=== PATIENT | male | born 1995 | race Two or more races ===

== ENCOUNTER → 2024-05-22 | Outpatient (BNVA) | payer MEDICAID, SELFPAY | END | disposition home or self-care (01) | PROVIDERS: PCP Physician Assistant; Referring Provider Physician Assistant; Visit Provider Urology | DX: N47.1 Phimosis (principal); N47.8 Other disorders of prepuce; E78.5 Hyperlipidemia, unspecified; F41.9 Anxiety disorder, unspecified; F84.0 Autistic disorder | CPT/HCPCS: 81003; 99202; G0463 ==